=== PATIENT | male | born 2000 | race Caucasian/White ===

== ENCOUNTER 2022-09-02 10:17 | Emergency (ER) | payer OTHER ==
[~2022-09-02] VITALS: Ht 170.2 cm; Wt 77.1 kg
--- NOTE | 2022-09-02 10:30 | NUR ---
Patient to ER bed WR to gown for evaluation. Side rails up.
--- NOTE | 2022-09-02 10:35 | NUR ---
ER at bedside examining patient.
[2022-09-02 10:41] VITALS: BP_SYST 126
--- NOTE | 2022-09-02 11:35 | NUR ---
Patient given written and verbal discharge instructions and verbalizes understanding. ER MD discussed with patient the results and treatment provided. Patient in stable condition. ID arm band removed. NO Rx of given. Patient educated on pain management and to follow up with PMD. Pain Scale 3. Opportunity for questions provided and answered. Medication side effect fact sheet provided.
== END 2022-09-02 11:30 | disposition home or self-care (01) ==
LOC: SED 10:17
DX: S93.401A Sprain of unspecified ligament of right ankle, initial encounter (principal); Z79.899 Other long term (current) drug therapy; X58.XXXA Exposure to other specified factors, initial encounter; Y93.B9 Activity, other involving muscle strengthening exercises; Y92.89 Other specified places as the place of occurrence of the external cause; Y99.8 Other external cause status
CPT/HCPCS: 99283